=== PATIENT | male | born 1980 | race Caucasian/White ===

== ENCOUNTER → 2021-07-19 | Outpatient (CLI) | payer OTHER, MEDICARE | LOC: CARD 09:00 | PROVIDERS: ATTEND Internal Medicine Cardiovascular Disease | DX: I51.7 Cardiomegaly (principal); I25.10 Atherosclerotic heart disease of native coronary artery without angina pectoris | CPT/HCPCS: 93306 ==

== ENCOUNTER → 2021-08-02 | Outpatient (CLI) | payer OTHER, MEDICARE ==
[~2021-08-02] VITALS: Ht 185 cm; Wt 109.0 kg
[~2021-08-02] MED LIST: CATHETER FLUSH 10 ML SYR IVP PRN; REGADENOSON 0.4 MG/5 ML SYR (LEXISCAN) IV ONE
[2021-08-02 09:42] VITALS: BP 121/74
--- NOTE | 2021-08-02 17:34 | STRESS TEST ---
DATE OF SERVICE: 08/02/2021 RESTING AND POST REGADENOSON TECHNETIUM-99M TETROFOSMIN SPECT CT IMAGING ORDERING PHYSICIAN: Dr. Cutler. PRIMARY PHYSICIAN: Dr. Diaz. CLINICAL DIAGNOSIS: Coronary artery disease. Baseline images were carried out after injection of 10.37 mCi of technetium-99m Tetrofosmin. This was followed by 0.4 mg regadenoson and 30.6 mCi of technetium-99m Tetrofosmin for stress imaging. The electrocardiogram showed sinus rhythm at baseline. There is also evidence of old inferior wall myocardial infarction on the electrocardiogram. The patient tolerated the procedure well. Review of images at rest and following stress indicates an inferior perfusion defect that is partially transient. Gated images show severe basal inferior hypokinesis and mild to moderate global hypokinesis. Left ventricular ejection fraction is calculated to be 34%, but subjectively appears somewhat higher than that. Left ventricular end-diastolic volume is 119 mL. CONCLUSIONS: 1. Inferior wall myocardial ischemia with a moderate amount of ibis-infarct ischemia. 2. Global hypokinesis that is more marked in the basal inferior wall. 3. Mild to moderate cardiomegaly. 4. Left ventricular ejection fraction is calculated to be 34%. Job ID: [id number] DocumentID: [id number] Dictated Date: 08/02/2021 16:05:11 [employer] Date: 08/02/2021 17:34:20 Dictated By: VERONICA CUTLER MD, MA, FACP, FACC,
== END ==
LOC: CARD 08:15
PROVIDERS: ATTEND Internal Medicine Cardiovascular Disease
DX: I25.9 Chronic ischemic heart disease, unspecified (principal); I25.10 Atherosclerotic heart disease of native coronary artery without angina pectoris; I51.7 Cardiomegaly
CPT/HCPCS: 78452; 93017; A9502

== ENCOUNTER 2021-08-16 08:00 | Day surgery (SDC) | payer OTHER, MEDICARE ==
[2021-08-16] VITALS (8 sets, daily range): BP systolic 108–126; BP diastolic 69–86
[~2021-08-16] VITALS: Ht 185.4 cm; Wt 104.8 kg
[2021-08-16 07:19] LABS: HEMATOCRIT 56 % (40-54); HEMOGLOBIN 18.3 g/dL (13.3-17.7); MEAN CORPUSCULAR HEMOGLOBIN 28 pg (25-34); MEAN CORPUSCULAR HGB CONC 33 g/dL (32-36); MEAN CORPUSCULAR VOLUME 86 fL (80-99); MEAN PLATELET VOLUME 10.6 fL (9.0-12.2); PLATELET COUNT 253 10^3/uL (130-400); WHITE BLOOD COUNT 12.5 10^3/uL (4.3-11.0)
[2021-08-16 07:33] LABS: INR 0.9 (0.8-1.4); PROTHROMBIN TIME PATIENT 12.7 SEC (12.2-14.7)
[2021-08-16 07:41] LABS: ALBUMIN 4.4 GM/DL (3.2-4.5); POTASSIUM 3.7 MMOL/L (3.6-5.0)
[2021-08-16 07:43] LABS: TOTAL PROTEIN 7.5 GM/DL (6.4-8.2)
[2021-08-16 07:45] LABS: BILIRUBIN,TOTAL 0.8 MG/DL (0.1-1.0)
[2021-08-16 07:47] LABS: CREATININE SERUM 0.9 MG/DL (0.60-1.30)
[~2021-08-16 08:00] MED LIST changes: +ASPI-999 PO; +ATOR80TA76 PO; +BUPR150T24 PO; +BUPR300T98 PO; -CATHETER FLUSH 10 ML SYR IVP PRN; +EMPA25TA PO; +HEParin (CATH LAB) 2,000 ML IV ONE; +HUM100VI SQ; +INSU100I34 SQ; +LIDOCAINE 1% INJ 20 ML VIAL ONE; +LISI2.5T13 PO; +METF-398 PO; +METO-333 PO; +MIDAZOLAM 5 MG/5 ML (VERSED) VIAL ONE; +MIRT-69 PO; +NS IV 1000 ML 1,000 ML IV SCH; +NS IV 1000 ML 1,000 ML ONE; +PRAZ1CAP2 PO; +PREG150C46 PO; -REGADENOSON 0.4 MG/5 ML SYR (LEXISCAN) IV ONE; +SEMA0.25 SQ; +TICA90TA PO; +TRM50T PO; +fentaNYL INJ 100 MCG/2 ML AMP ONE
[2021-08-16] MEDS ORDERED: EPTIFIBATIDE BOLUS 10 ML IV ONE ×2 (08:59→09:04)
[2021-08-16] MEDS ORDERED: HEParin 1000 UNIT/ML (10ML VIAL) FOR BOLUS ONE (08:59)
[2021-08-16] MEDS ORDERED: NITRO DRIP 25000 MCG/D5W 0 ML IV ONE (09:11)
[2021-08-16] MEDS ORDERED: TICAGRELOR 90 MG TABLET (BRILINTA) PO ONE (09:18)
[2021-08-16] MEDS ORDERED: ASPIRIN 81 MG CHEW (CHILDREN'S ASA) ONE (09:18)
--- NOTE | 2021-08-16 09:19 | Cardiac Procedure Note-CS/ASA ---
Pre-Procedure Note Pre-Op Procedure Note H&P Reviewed The H&P was reviewed, patient examined and no changes noted. Date H&P Reviewed: August 16, 2021 Time H&P Reviewed: 08:45 Conscious Sedation Pre-Proced Time 08:45 ASA Score 3 For ASA 3 and 4: Consider anesthesia and medical clearance. Also, for patients with a history of failed moderate sedation consider anesthesia. Airway Lungs Heart ASA score ASA 1: a normal healthy patient ASA 2: a patient with a mild systemic disease (mid diabetes, controlled hypertension, obesity ASA 3: a patient with a severe systemic disease that limits activity (angina, COPD, prior Myocardial infarction) ASA 4: a patient with an incapacitating disease that is a constant threat to life (CHF, renal failure) ASA 5: a moribund patient not expected to survive 24 hrs. (ruptured aneurysm) ASA 6: a declared brain- patient whose organs are being harvested. For emergent operations, add the letter E after the classification Mallampati Classification Grade 2 Sedation Plan Analgesia, Amnesia, Plan communicated to team members, Discussed options with patient/fam, Discussed risks with patient/fam The patient is an appropriate candidate to undergo the planned procedure, sedation, and anesthesia. The patient immediately re-assessed prior to indication. VERONICA GIRON MD FACP FAC CCDS August 16, 2021 09:19
[2021-08-16] MEDS ORDERED: PATIENT MAY USE OWN MEDS, ALL PO SCH (09:30)
[2021-08-16] MEDS ORDERED: ACETAMINOPHEN 325 MG TABLET PO PRN (09:30)
[2021-08-16] MEDS ORDERED: NON-FORMULARY MEDICATION 1 EA EA (Semaglutide (Ozempic) 0.5 MG) SQ SCH (09:30)
[2021-08-16] MEDS ORDERED: NS IV 1000 ML 1,000 ML IV SCH (09:30)
[2021-08-16] MEDS ORDERED: inSUlin ASPART (NovoLOG) 1 UNIT/0.01 ML (CHARGE PER UNIT) SC SCH (10:00)
--- NOTE | 2021-08-16 10:10 | CARDIAC CATHETERIZATION ---
DATE OF SERVICE: 08/16/2021 CARDIAC CATHETERIZATION AND CORONARY INTERVENTION REPORT The patient is a 41-year-old gentleman with known coronary artery disease, who previously had extensive stenting of the right coronary artery at the [facility] in [place], [place] in 2019 and 2019. He has also had balloon angioplasty of the left anterior descending in 2020 at the same hospital. He recently had a myocardial perfusion imaging study, which indicated inferior wall myocardial infarction with a moderate amount of ibis-infarct ischemia. Left ventricular ejection fraction measured by myocardial perfusion imaging was 34%. On echocardiography, ejection fraction was approximately 55%. Cardiac catheterization was recommended for further evaluation and, if needed, intervention for right coronary ischemia. DESCRIPTION OF PROCEDURE: He was brought to the cardiac catheterization laboratory in a fasting state. Right groin was prepared and draped in the usual sterile fashion. Lidocaine 1% was used for local anesthesia. Modified Seldinger technique was used to advance a 5-Japanese sheath into the right femoral artery. A 5-Japanese JL3.5 catheter was used for left coronary angiography. A 5-Japanese JR4 catheter was used for right coronary angiography, 5-Japanese pigtail catheter was used for left heart catheterization and left ventricular angiography. Angiography of the right femoral artery had been carried out through the sheath at the beginning the procedure. Following completion of the diagnostic procedure, we proceeded with percutaneous intervention to the right coronary artery that is described below. PERCUTANEOUS INTERVENTION OF THE RIGHT CORONARY: We exchanged the sheath over a wire for a 6-Japanese sheath. We used a 6-Japanese JR4 guide catheter to engage the right coronary artery. We gave 6000 units of intravenous heparin and double bolus of Integrilin. We used a 6-Japanese JR4 guide catheter to engage the right coronary artery and a BMW wire to cross an 80% in-stent restenosis in a long stented segment in the proximal, mid and distal right coronary. The tip of the wire was placed in the distal vessel. We advanced a 3.0 x 15 mm balloon to the 80% in-stent restenosis in the distal part of the stented segment and balloon angioplasty was carried out at 18 atmospheres. This reduced the stenosis from 80% to 0% residual. Flow throughout the vessel remained normal. The distal right coronary artery has multiple up to 50% stenosis. The mid right coronary artery in the stented segment, also has another 40% stenosis. These were not intervened on. Right coronary artery is dominant. At the end of the procedure, Mynx was used to achieve hemostasis following sheath removal. He tolerated the procedure well. HEMODYNAMICS: Left ventricular end-diastolic pressure following coronary angiography was 8 mmHg. There is no significant pressure gradient on pullback across the aortic valve. Ascending aortic pressure was 103/67 with a mean of 78 mmHg. CORONARY ANGIOGRAPHY: Left main coronary artery does not exhibit significant disease. The left anterior descending artery is considerably ectatic in its proximal and mid portions. The diagonal branches in the mid to distal left anterior descending artery has multiple stenoses of up to approximately 50%. The left circumflex artery has diffuse mild to moderate plaque. Right coronary artery is large and dominant and is extensively stented in its proximal, mid, and the distal portions, up to the origin of the posterior descending branch. The stented segment had an 80% distal stenosis to which successful balloon angioplasty was carried out with reduction of stenosis to 0% residual. The mid part of the stented segment has approximately 40% stenosis. This was not intervened on. The distal right coronary artery has multiple stenoses of up to approximately 40% to 50%. These were not intervened on. LEFT VENTRICULAR ANGIOGRAPHY: Left ventricular angiography was carried out in the right anterior oblique projection. There is posterobasal hypokinesis to akinesis. There is mild global hypokinesis. Left ventricular ejection fraction approximately 45%. CONCLUSIONS: 1. Coronary artery disease as detailed above. There is considerable ectasia of the proximal and mid portions of the left anterior descending. Left anterior descending has diffuse moderate disease with stenoses of up to approximately 40% at several spots. Left circumflex artery has diffuse moderate disease. Right coronary artery is extensively stented and had an 80% stenosis in the distal portion of the stented segment to which successful balloon angioplasty was carried out with reduction of stenosis to 0% residual. Right coronary artery is dominant. 2. Posterior basal akinesis. 3. Mild global hypokinesis. 4. Left ventricular ejection fraction approximately 45%. 5. Left ventricular end-diastolic pressure 8 mmHg. DISCUSSION AND RECOMMENDATIONS: Dual antiplatelet therapy is being continued. Beta jomar, ZENA inhibitor and statin therapy is being continued. Risk factor modification has been reviewed. 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
[2021-08-16] MEDS ORDERED: NICOTINE 21 MG (NICODERM) PATCH TD SCH (11:45)
[2021-08-16] MEDS ORDERED: PREGABALIN 150 MG (LYRICA) CAPSULE PO SCH ×3 (12:00→21:00)
[2021-08-16] MEDS ORDERED: meTOprolol TARTRATE 25 MG (LOPRESSOR) TABLET PO SCH ×2 (12:00→21:00)
[2021-08-16] MEDS ORDERED: EMPAGLIFLOZIN 10 MG TABLET (JARDIANCE) PO SCH (12:00)
[2021-08-16] MEDS ORDERED: lisINopril 5 MG (PRINIVIL) TABLET PO SCH (12:00)
--- NOTE | 2021-08-16 12:41 | Discharge Inst-Cardiology ---
Discharge Inst-Cardiac Discharge Medications Continued Medications: Aspirin (Aspirin) 81 Mg Tab.chew 81 MG PO DAILY, TAB Atorvastatin Calcium (Atorvastatin Calcium) 80 Mg Tablet 80 MG PO DAILY, TAB Bupropion HCl (Bupropion Xl) 150 Mg Tab.er.24h 150 MG PO DAILY, TAB Bupropion HCl (Bupropion Xl) 300 Mg Tab.er.24h 300 MG PO DAILY, TAB Empagliflozin (Jardiance) 25 Mg Tablet 25 MG PO DAILY, TAB Insulin Glargine,Hum.rec.anlog (Basaglar Kwikpen U-100) 100 Unit/Ml (3 Ml) Insuln.pen 20 UNIT SQ HS, EA Insulin NPH Hum/Reg Insulin Hm (Humulin 70-30 Vial) 100 Unit/Ml (70-30) Vial 0-30 UNIT SQ TID, EA PER SLIDING SCALE Lisinopril (Lisinopril) 2.5 Mg Tablet 2.5 MG PO DAILY, TAB Metformin HCl (Metformin HCl) 850 Mg Tablet 850 MG PO BID, TAB Metoprolol Tartrate (Metoprolol Tartrate) 25 Mg Tablet 25 MG PO BID, TAB Mirtazapine (Mirtazapine) 30 Mg Tablet 30 MG PO DAILY, TAB Prazosin HCl (Prazosin HCl) 1 Mg Capsule 1 MG PO HS, CAP Pregabalin (Pregabalin) 150 Mg Capsule 150 MG PO BID, CAP Semaglutide (Ozempic) 0.25 Mg/0.2 Ml Pen.injctr 0.5 MG SQ WEEKLY ON SUN, EA Ticagrelor (Brilinta) 90 Mg Tablet 90 MG PO BID, TAB Tramadol HCl (Tramadol HCl) 50 Mg Tablet 100 MG PO TID, TAB Patient Instructions Patient Instructions: DO NOT RESTART YOUR METFORMIN UNTIL SUNDAY, AUGUST 19, 2021 Please scheduled follow up appointment to see Dr. Cutler in 2 weeks GABBY LOVELL August 16, 2021 12:41
[2021-08-16] MEDS ORDERED: NON-FORMULARY MEDICATION 1 EA EA (Prazosin HCl 1 MG) PO SCH (21:00)
[2021-08-16] MEDS ORDERED: TICAGRELOR 90 MG TABLET (BRILINTA) PO SCH (21:00)
[2021-08-17] MEDS ORDERED: NICOTINE PATCH REMOVAL TP SCH (08:59)
[2021-08-17] MEDS ORDERED: NON-FORMULARY MEDICATION 1 EA EA (Mirtazapine 30 MG) PO SCH (09:00)
[2021-08-17] MEDS ORDERED: ASPIRIN 81 MG CHEW (CHILDREN'S ASA) PO SCH (09:00)
[2021-08-17] MEDS ORDERED: NON-FORMULARY MEDICATION 1 EA EA (Bupropion HCl (Bupropion Xl) 300 MG) PO SCH (09:00)
[2021-08-17] MEDS ORDERED: EMPAGLIFLOZIN 10 MG TABLET (JARDIANCE) PO SCH (09:00)
[2021-08-17] MEDS ORDERED: NON-FORMULARY MEDICATION 1 EA EA (Empagliflozin (Jardiance) 25 MG) PO SCH (09:00)
[2021-08-17] MEDS ORDERED: lisINopril 5 MG (PRINIVIL) TABLET PO SCH (09:00)
[2021-08-17] MEDS ORDERED: NON-FORMULARY MEDICATION 1 EA EA (Lisinopril 2.5 MG) PO SCH (09:00)
[2021-08-17] MEDS ORDERED: NON-FORMULARY MEDICATION 1 EA EA (Bupropion HCl (Bupropion Xl) 150 MG) PO SCH (09:00)
== END 2021-08-16 13:50 | disposition home or self-care (01) ==
LOC: CATH 08:00 → CSD 09:49 → CATH 13:50
PROVIDERS: ATTEND Internal Medicine Cardiovascular Disease
DX: I25.10 Atherosclerotic heart disease of native coronary artery without angina pectoris (principal); R29.898 Other symptoms and signs involving the musculoskeletal system; R94.39 Abnormal result of other cardiovascular function study; I10 Essential (primary) hypertension; G89.29 Other chronic pain; E11.9 Type 2 diabetes mellitus without complications; E78.5 Hyperlipidemia, unspecified; M25.50 Pain in unspecified joint; F17.210 Nicotine dependence, cigarettes, uncomplicated; Z79.02 Long term (current) use of antithrombotics/antiplatelets; Z79.84 Long term (current) use of oral hypoglycemic drugs; Z79.899 Other long term (current) drug therapy; Z79.4 Long term (current) use of insulin
CPT/HCPCS: 80053; 80061; 82947; 85027; 85610; 85730; 87081; 92920; 93005; 93458; C1725; C1760; C1769; C1887; C1894 ×2; 36415

== ENCOUNTER 2022-03-18 07:12 | Emergency (ER) | payer OTHER, MEDICARE ==
[~2022-03-18 07:12] MED LIST changes: -HEParin (CATH LAB) 2,000 ML IV ONE; -LIDOCAINE 1% INJ 20 ML VIAL ONE; -MIDAZOLAM 5 MG/5 ML (VERSED) VIAL ONE; -NS IV 1000 ML 1,000 ML IV SCH; -NS IV 1000 ML 1,000 ML ONE; -fentaNYL INJ 100 MCG/2 ML AMP ONE
[2022-03-18] MEDS ORDERED: CALCIUM CHLORIDE 10% 1000 MG/10 ML VIAL IV ONE (07:15)
[2022-03-18] MEDS ORDERED: EPINEPHrine 0.1 MG/ML 10 ML (HOSPIRA) SYR INJ ONE (07:15)
[2022-03-18] MEDS ORDERED: EPINEPHrine (PYXIS DRIP KIT ONLY) 1 MG/ML X 4 AMPS ONE (07:36)
[2022-03-18] MEDS ORDERED: NS (IVPB) 0 ML ONE (07:37)
[2022-03-18 07:43] LABS: BASOPHILS # (AUTO) 0.1 10^3/uL (0.0-0.1); BASOPHILS % (AUTO) 1 % (0-10); BILIRUBIN,URINE NEGATIVE (NEGATIVE); CLARITY,URINE CLEAR; COLOR,URINE YELLOW; EOSINOPHILS # (AUTO) 0.1 10^3/uL (0.0-0.3); EOSINOPHILS % (AUTO) 1 % (0-10); GLUCOSE, URINE (UA) 3+ (NEGATIVE); HEMATOCRIT 52 % (40-54); HEMOGLOBIN 16.4 g/dL (13.3-17.7); KETONES,URINE NEGATIVE (NEGATIVE); LEUKOCYTE ESTERASE ,URINE NEGATIVE (NEGATIVE); LYMPHOCYTES # (AUTO) 12.2 10^3/uL (1.0-4.0); LYMPHOCYTES % (AUTO) 65 % (12-44); MEAN CORPUSCULAR HEMOGLOBIN 29 pg (25-34); MEAN CORPUSCULAR HGB CONC 32 g/dL (32-36); MEAN CORPUSCULAR VOLUME 92 fL (80-99); MEAN PLATELET VOLUME 10.4 fL (9.0-12.2); MONOCYTES # (AUTO) 0.8 10^3/uL (0.0-1.0); MONOCYTES % (AUTO) 4 % (0-12); NEUTROPHILS % (AUTO) 27 % (42-75); NITRITE,URINE NEGATIVE (NEGATIVE); PLATELET COUNT 192 10^3/uL (130-400); PROTEIN,URINE NEGATIVE (NEGATIVE); WHITE BLOOD COUNT 18.9 10^3/uL (4.3-11.0)
[2022-03-18 07:55] LABS: AMPHETAMINE SCREEN, URINE NEGATIVE (NEGATIVE); BARBITURATE SCREEN URINE POSITIVE (NEGATIVE); BENZODIAZEPINES SCREEN URINE NEGATIVE (NEGATIVE); CANNABINOID SCREEN, URINE NEGATIVE (NEGATIVE); COCAINE SCREEN URINE NEGATIVE (NEGATIVE); METHADONE STAT NEGATIVE (NEGATIVE); OPIATE SCREEN URINE NEGATIVE (NEGATIVE); OXYCODONE STAT NEGATIVE (NEGATIVE); PROPOXYPHENE STAT NEGATIVE (NEGATIVE); TRICYCLIC ANTIDEPRESSANTS SCRE NEGATIVE (NEGATIVE)
--- NOTE | 2022-03-18 07:58 | ED CPR ---
HPI-CPR General Chief Complaint: Code Blue Stated Complaint: CODE BLUE Source of Information: EMS History of Present Illness Date Seen by Provider: Mar 18, 2022 Time Seen by Provider: 07:12 Initial Comments 41-year-old male presents emergency department today with CPR in progress. He was found unresponsive this morning. CPR was started at 620 with a last known well time about 2:30 in the morning. CPR has been continuous per ACLS protocol since 620. He has had around 7 rounds of epinephrine and 2 rounds of amiodarone prior to arrival. Initial rhythm according to EMS was ventricular fibrillation. He did receive defibrillation x2 and this degraded ultimately to PEA. On arrival patient's rhythm is asystole. ACLS protocols are resumed. Only known medical history is several heart attacks and diabetes mellitus. Field blood sugar was in the 90s Allergies and Home Medications Allergies Coded Allergies: No Known Drug Allergies (Unverified , 08/02/21) Patient Home Medication List Home Medication List Reviewed: Yes Aspirin (Aspirin) 81 Mg Tab.chew, 81 MG PO DAILY, (Reported) Entered as Reported by: KENNETH HANCOCK on 08/16/21742 Atorvastatin Calcium (Atorvastatin Calcium) 80 Mg Tablet, 80 MG PO DAILY, (R eported) Entered as Reported by: KENNETH HANCOCK on 08/16/21742 Bupropion HCl (Bupropion Xl) 150 Mg Tab.er.24h, 150 MG PO DAILY, (Reported) Entered as Reported by: KENNETH HANCOCK on 08/16/21742 Bupropion HCl (Bupropion Xl) 300 Mg Tab.er.24h, 300 MG PO DAILY, (Reported) Entered as Reported by: KENNETH HANCOCK on 08/16/21 07 Empagliflozin (Jardiance) 25 Mg Tablet, 25 MG PO DAILY, (Reported) Entered as Reported by: KENNETH HANCOCK on 08/16/21742 Insulin Glargine,Hum.rec.anlog (Basaglar Kwikpen U-100) 100 Unit/Ml (3 Ml) Insuln.pen, 20 UNIT SQ HS, (Reported) Entered as Reported by: KENNETH HANCOCK on 08/16/21742 Insulin NPH Hum/Reg Insulin Hm (Humulin 70-30 Vial) 100 Unit/Ml (70-30) Vial, 0- 30 UNIT SQ TID, (Reported) Entered as Reported by: KENNETH HANCOCK on 08/16/21742 Lisinopril (Lisinopril) 2.5 Mg Tablet, 2.5 MG PO DAILY, (Reported) Entered as Reported by: KENNETH HANCOCK on 08/16/21742 Metformin HCl (Metformin HCl) 850 Mg Tablet, 850 MG PO BID, (Reported) Entered as Reported by: KENNETH HANCOCK on 08/16/21742 Metoprolol Tartrate (Metoprolol Tartrate) 25 Mg Tablet, 25 MG PO BID, (Reported) Entered as Reported by: KENNETH HANCOCK on 08/16/21742 Mirtazapine (Mirtazapine) 30 Mg Tablet, 30 MG PO DAILY, (Reported) Entered as Reported by: KENNETH HANCOCK on 08/16/21742 Prazosin HCl (Prazosin HCl) 1 Mg Capsule, 1 MG PO HS, (Reported) Entered as Reported by: KENNETH HANCOCK on 08/16/21742 Pregabalin (Pregabalin) 150 Mg Capsule, 150 MG PO BID, (Reported) Entered as Reported by: KENNETH HANCOCK on 08/16/21742 Semaglutide (Ozempic) 0.25 Mg/0.2 Ml Pen.injctr, 0.5 MG SQ WEEKLY ON SUN, (Reported) Entered as Reported by: KENNETH HANCOCK on 08/16/21742 Ticagrelor (Brilinta) 90 Mg Tablet, 90 MG PO BID, (Reported) Entered as Reported by: KENNETH HANCOCK on 08/16/21742 Tramadol HCl (Tramadol HCl) 50 Mg Tablet, 100 MG PO TID, (Reported) Entered as Reported by: KENNETH HANCOCK on 08/16/21742 Review of Systems Review of Systems Constitutional: other (Unable to obtain review of systems due to patient acuity) Past Wwggcwn-Hshobq-Ufhpvj Hx Past Medical History Surgery/Hospitalization HX: Unable to obtain medical, surgical and social history, family history due to patient acuity, unresponsiveness. All history provided is via previous medical records Appendectomy, Coronary Stent Coronary Artery Disease, High Cholesterol, Hypertension Physical Exam Vital Signs Capillary Refill : Height, Weight, BMI Height: '" Weight: lbs. oz. kg; 30.48 BMI Method: General Appearance: Other (Unresponsive, pale and cool to the touch) HEENT: Other (He was dilated, unresponsive) Neck: Normal Inspection, Supple Respiratory: Other (Bag mask ventilation with I gel airway in place) Cardiovascular: Other (Asystole) Gastrointestinal: No Organomegaly, Soft Extremity: Other (Pale, cool to touch with decreased capillary refill) Neurologic/Psychiatric: Other (Unresponsive) Skin: Mottled, Pallor Procedures/Interventions Intubation Method: orotracheal Tube Size: 8.0 Positive End Tide CO2: Yes Breath Sounds after Intubation: bilateral-equal Intubation Complications: no complications Post Intubation Xray: No Progress/Results/Core Measures Results/Orders Lab Results Laboratory Tests Test 03/18/22 07:22 Range/Units White Blood Count 18.9 H 4.3-11.0 10^3/uL Red Blood Count 5.69 H 4.30-5.52 10^6/uL Hemoglobin 16.4 13.3-17.7 g/dL Hematocrit 52 40-54 % Mean Corpuscular Volume 92 80-99 fL Mean Corpuscular Hemoglobin 29 25-34 pg Mean Corpuscular Hemoglobin Concent 32 32-36 g/dL Red Cell Distribution Width 12.8 10.0-14.5 % Platelet Count 192 130-400 10^3/uL Mean Platelet Volume 10.4 9.0-12.2 fL Immature Granulocyte % (Auto) 3 % Neutrophils (%) (Auto) 27 L 42-75 % Lymphocytes (%) (Auto) 65 H 12-44 % Monocytes (%) (Auto) 4 0-12 % Eosinophils (%) (Auto) 1 0-10 % Basophils (%) (Auto) 1 0-10 % Neutrophils # (Auto) 5.0 1.8-7.8 10^3/uL Lymphocytes # (Auto) 12.2 H 1.0-4.0 10^3/uL Monocytes # (Auto) 0.8 0.0-1.0 10^3/uL Eosinophils # (Auto) 0.1 0.0-0.3 10^3/uL Basophils # (Auto) 0.1 0.0-0.1 10^3/uL Immature Granulocyte # (Auto) 0.6 H 0.0-0.1 10^3/uL My Orders Orders - JOLENEREGINA DO Comprehensive Metabolic Panel (03/18/22 07:31) Ua Culture If Indicated (03/18/22:31) Lactic Acid Analyzer (03/18/22:31) Troponin I [place] (03/18/22 07:31) Drug Screen Stat (Urine) (03/18/22 07:31) Arterial Blood Gas (03/18/22:31) Chest 1 View, Ap/Pa Only (03/18/22:31) Covid 19 Inhouse Test (03/18/22:31) Cbc With Automated Diff (03/18/22:31) Influenza A And B By Pcr (03/18/22:31) Ct Head Wo (03/18/22:) Ekg Tracing (03/18/22:31) Epinephrine (Pyxis Drip Kit) (Epinephrin (03/18/22 07:36) Ns (Ivpb) (Sodium Chloride 0.9%) (03/18/22 07:37) Manual Differential (03/18/22:22) EKG : Comment Likely sinus rhythm however difficult to ascertain with baseline interference. Right bundle branch block. There are diffuse T wave inversions. No obvious contiguous ST elevations though there may be some slight ST elevation in lead V5. No STEMI. Intervals are wide. Left axis deviation. Critical Care Note Critical Care Start Time: 07:12 Stop Time: 07:40 Departure Communication (Admissions) Patient arrives in asystole. After about 10 minutes of CPR we did get an organized rhythm with a bounding pulse, stable blood pressure. This lasted for about 5 or so minutes and began to have more hypotension. Epinephrine was given once again as a bolus and drip was being prepared when the patient developed bradycardia and deteriorated into asystole once again. CPR was resumed at which point his witnessed CPR and asked us to stop if he was going to be "brain ." I had a conversation with her about the duration of CPR, starting at 620 had been ongoing for more than an hour at that point although we did have a brief return of pulses. This may have been related to epinephrine solely but unclear at this time. We were able to obtain an EKG while he maintained an organized rhythm and it did not show any evidence for STEMI. Ultimately the code was called at 990 being the time of . Discussing with his reveals that he has multiple family members, all of whom before the age of 40 with "massive heart attack." I called multiple family members for the to inform them of his passing and also have called the president/gm production & live experiences Impression Primary Impression: Cardiac arrest Additional Impression: Respiratory failure Qualified Codes: J96.00 - Acute respiratory failure, unspecified whether with hypoxia or hypercapnia Disposition: 20 Condition: Departure-Patient Inst. Referrals: DENIZ DOWNIGN DO (PCP/Family) Primary Care Physician REGINA FERNÁNDEZ DO Mar 18, 2022 07:58
[2022-03-18 08:00] LABS: BACTERIA,URINE TRACE /HPF; SQUAMOUS EPITHELIAL CELL,UR RARE /HPF
[2022-03-18 08:05] LABS: ALBUMIN 3.5 GM/DL (3.2-4.5); BILIRUBIN,TOTAL 0.4 MG/DL (0.1-1.0); CREATININE SERUM 1.32 MG/DL (0.60-1.30); POTASSIUM 3.5 MMOL/L (3.6-5.0); TOTAL PROTEIN 6.4 GM/DL (6.4-8.2)
[2022-03-18 08:32] LABS: EOSINOPHILS % (MANUAL) 3 %; LYMPHOCYTES % (MANUAL) 25 %; MONOCYTES % (MANUAL) 4 %; NEUTROPHILS % (MANUAL) 33 %; RBC MORPH NORMAL; REACTIVE LYMPHOCYTES 35 %
[2022-03-18] MEDS ORDERED: NS IV 1000 ML 1,000 ML IV SCH (16:15)
== END 2022-03-18 09:37 | disposition expired ==
LOC: EDUNIT# 07:12 → ER 07:14
DX: I46.9 Cardiac arrest, cause unspecified (principal); J96.90 Respiratory failure, unspecified, unspecified whether with hypoxia or hypercapnia; I10 Essential (primary) hypertension
CPT/HCPCS: 31500; 36415; 51702; 80053; 80306; 81000; 84484; 85007; 85027; 93005